=== PATIENT | female | born 1970 | race Caucasian/White ===

== ENCOUNTER 2016-08-07 00:10 | Emergency (ER) | payer MEDICARE, BC ==
[~2016-08-07 00:10] MED LIST: ADVAIR 250-501 EACH IH; ADVAIR 2501 DISK W/D PO; ADVAIR 5001 DISK W/D PO; ALPRAZOLAM PO; ASTELIN137 MCG; ASTELIN137 MCG INH; ATENOLOL; BENADRYL25 MG PO; CARAFATE PO; CEFTIN PO; CELLCEPT500 MG PO; CIPRO PO; CLEOCIN HCL150 MG PO; DDAVP0.2 MG PO; DEPO-PROVER150 MG/ML INJ; DIFLUCAN PO; ECOTRIN325 MG PO; ELMIRON100 MG PO; FAMOTIDINE PO; FLEXERIL PO; FLEXERIL10 MG PO; K-DUR10 MEQ; LEVAQUIN PO; LISINOPRIL10 MG PO; LODINE XL PO; LOESTRIN FE1 EA PO; LORTAB 5/500 TA1 TA1 PO; LOVAZA; LOVAZA1 G PO; LUNESTA PO; LYRICA PO; MAGNESIUM27 MG; MUCINEX D1 TAB.SR1 PO; MUCINEX DM1 TAB.SR . PO; MUCINEX1200 MG/BO PO; MYLANTA400 MG PO; NASACORT AQ16.5 GM; NASOCORT; NEURONTIN100 MG PO; NEXIUM PO; NORDITROPI SQ; NUVARING V1 VAG.RING VG; OMNICEF PO; PHENERGAN DM1 ML PO; PLAQUENIL200 MG PO; PRAVACHOL20 MG PO; PREDNISONE PO; PREDNISONE10 MG PO; PROTONIX PO; RELAFEN PO; RESTASIS32 EA OP; SINGULAIR PO; SOD BICARBONATE; SYMBICORT INH; SYNTHROID PO; SYNTHROID88 MCG PO; SYSTANE 0.3-0.415 ML OP; ULTRAM PO; VITAMIN D PO; VITAMIN D250000 UNIT PO; XANAX0.5 MG PO; ZIPSOR25 MG PO; ZYRTEC PO; [UNRECOGNIZED DRUG - OTHER]; [UNRECOGNIZED DRUG - OTHER] PO; [UNRECOGNIZED DRUG - OTHER] SUBQ
[2016-08-07] MEDS ORDERED: BUDESONIDE1 MG/2 ML (00:19)
[2016-08-07] MEDS ORDERED: CHEMO THERAPY (00:20)
[2016-08-07] MEDS ORDERED: ALDACTONE (00:23)
[2016-08-07] MEDS ORDERED: PLAQUENIL200 MG (00:24)
[2016-08-07] MEDS ORDERED: PULMICORT0.25 MG/2 (00:24)
[2016-08-07] MEDS ORDERED: METFORMIN (00:24)
== END 2016-08-07 01:27 | disposition home or self-care (01) ==
LOC: SED 00:10
DX: L55.9 Sunburn, unspecified (principal); R21 Rash and other nonspecific skin eruption; Z88.6 Allergy status to analgesic agent; Z88.1 Allergy status to other antibiotic agents; Z88.2 Allergy status to sulfonamides; Z79.899 Other long term (current) drug therapy
CPT/HCPCS: 99282

== ENCOUNTER → 2016-09-19 | Outpatient (CLI) | payer MEDICARE, BC ==
[~2016-09-19] MED LIST changes: +ALDACTONE; +BUDESONIDE1 MG/2 ML; +CHEMO THERAPY; +METFORMIN; +PLAQUENIL200 MG; +PULMICORT0.25 MG/2
[2016-09-19 16:45] LABS: THYROID STIMULATING HORMONE 0.99 uIU/ml (0.34-5.60)
[2016-09-19 23:27] LABS: FREE T3 3.8 pg/mL (2.5-3.9)
[2016-09-19 23:28] LABS: FREE THYROXIN (T4) 0.84 ng/dL (0.58-1.64)
[2016-09-22 20:35] LABS: INSULIN LIKE GROWTH FACTOR 185 ng/mL (52-328)
== END | disposition home or self-care (01) ==
LOC: SLABONLY 15:09
DX: E55.9 Vitamin D deficiency, unspecified (principal); E23.7 Disorder of pituitary gland, unspecified; E66.8 Other obesity; E03.9 Hypothyroidism, unspecified
CPT/HCPCS: 36415; 82024; 82306; 82533; 83036; 83835; 84305; 84439; 84443; 84481

== ENCOUNTER → 2016-09-19 | Outpatient (CLI) | payer MEDICARE, BC ==
[2016-09-19 16:35] LABS: ALBUMIN SERUM 4.4 g/dL (3.5-5.0); BILIRUBIN,TOTAL 0.6 mg/dL (0.2-2.0); BUN/CREATININE RATIO 18.57; CALCIUM SERUM 9.1 mg/dL (8.4-10.2); CREATININE SERUM 0.7 mg/dL (0.6-1.4); GLOM FILT RATE Estimated 104.6 mL/min (>60); POTASSIUM 4.5 mmol/L (3.5-5.1); PROTEIN TOTAL SERUM 7.4 g/dL (6.0-8.3)
== END | disposition home or self-care (01) ==
LOC: SLABONLY 15:01
PROVIDERS: Internal Medicine Endocrinology, Diabetes & Metabolism
DX: E06.3 Autoimmune thyroiditis (principal); E55.9 Vitamin D deficiency, unspecified; E03.9 Hypothyroidism, unspecified; E23.6 Other disorders of pituitary gland
CPT/HCPCS: 80053